=== PATIENT | female | born 1935 | race Caucasian/White ===

== ENCOUNTER 2016-09-27 19:06 | Observation (INO) ==
--- NOTE | 2016-09-27 19:27 | Emergency Department Note ---
Disposition Clinical Impression: Atrial fibrillation with RVR, Chest pain Disposition: Admitted As Inpatient Condition: Good Referrals: NO,PCP [Primary Care Provider] - Forms: ED Satisfaction Letter Time of Disposition: 23:01 Arrhythmia/Palpitations HPI - General Chief Complaint: ED Arrhythmia/Palpitations Stated Complaint: fast heart rate Time Seen by Provider: 09/27/16 19:20 Source: patient Mode of arrival: ambulatory Limitations: no limitations Nursing Notes Reviewed: Yes Vital Signs Reviewed: Yes - History of Present Illness HPI Narrative: 80-year-old white female who presents with dizziness that started sometime today around lunchtime. No chest pain or shortness of breath. [facility] and she was noted to have an elevated heart rate. She denies any history of similar symptoms. Pt Subjective Complaint: rapid heart beat Onset (ago): hour(s) Duration: constant Severity: moderate Context: occurred during rest Associated symptoms: Reports: other (Dizziness) Treatments prior to arrival: other (None) - Related Data Home Medications Medication Instructions Recorded Confirmed Aspirin [Lo-Dose Aspirin EC] 81 mg PO DAILY 09/27/16 09/27/16 Atorvastatin [Lipitor] 20 mg PO HS 09/27/16 09/27/16 BuPROPion [Wellbutrin] 300 mg PO DAILY 09/27/16 09/27/16 Cholecalciferol (Vitamin D3) 1,000 unit PO DAILY 09/27/16 09/27/16 [Vitamin D] Divalproex (24 HR) [Depakote ER 500 mg PO BID 09/27/16 09/27/16 (24 HR)] Docusate [Colace] 100 mg PO DAILY 09/27/16 09/27/16 Dorzolamide/Timolol/Pf [Cosopt Pf 1 each OP 09/27/16 Eye Drops] Folic Acid 1 mg PO DAILY 09/27/16 09/27/16 Gabapentin [Neurontin] 100 mg PO DAILY 09/27/16 09/27/16 Gemfibrozil [Lopid] 600 mg PO BIDWM 09/27/16 09/27/16 HYDROcodone/Acet 5/325 mg [[place] 1 tab PO Q6H PRN 09/27/16 09/27/16 5-325 mg] LORazepam [Ativan] 2.5 mg PO HS PRN 09/27/16 09/27/16 Lisinopril [Zestril] 10 mg PO DAILY 09/27/16 09/27/16 Metformin HCl [Glucophage] 1,000 mg PO BID 09/27/16 09/27/16 Ondansetron HCl [Zofran] 4 mg PO Q6H PRN 09/27/16 09/27/16 Potassium Chloride [Klor-Con 10] 10 meq PO DAILY 09/27/16 09/27/16 Ramelteon [Rozerem] 8 mg PO DAILY PRN 09/27/16 09/27/16 Ranitidine HCl [Acid Cement Worker] 150 mg PO DAILY 09/27/16 09/27/16 SitaGLIPtin [Januvia] 100 mg PO DAILY 09/27/16 09/27/16 Tramadol HCl [Ultram] 50 mg PO Q6H PRN 09/27/16 09/27/16 Allergies Allergy/AdvReac Type Severity Reaction Status Date / Time valdecoxib [From Bextra] Allergy Rash Verified 12/30/14 11:18 All systems ED: reviewed and negative except as stated. Constitutional: Denies: fever, chills Cardiovascular: Reports: palpitations. Denies: chest pain Respiratory: Denies: cough, dyspnea Gastrointestinal: Denies: abdominal pain, nausea, vomiting Genitourinary: Denies: urgency, dysuria Past Medical History - Past Medical History Medical history: Reports: diabetes, GERD, glaucoma, hyperlipidemia, arthritis, hypertension, other, CHF Surgical history: Reports: cataract, cholecystectomy Psychiatric history: Reports: bipolar, depression - Social History Smoking Status: Former smoker Smokeless Tobacco Status: No Alcohol use: Reports: none Drug use: Reports: none Physical Exam - General Limitations: no limitations General appearance: alert, in no apparent distress - Head Head exam: atraumatic, normocephalic - Eye Eye exam: Present: PERRL, EOMI - ENT ENT exam: normal oropharynx, mucous membranes moist - Neck Neck exam: Present: normal inspection, full ROM, trachea midline. Absent: lymphadenopathy - Chest Chest inspection: Present: normal inspection, symmetric chest wall rise - Respiratory Respiratory exam: Present: normal lung sounds bilaterally. Absent: respiratory distress, wheezes - Cardiovascular Cardiovascular exam: Present: regular rate, tachycardia. Absent: systolic murmur, diastolic murmur, gallop - Abdominal Exam Abdominal exam: Present: soft, Non-Tender. Absent: organomegaly, mass - Extremities Exam Extremities exam: Present: normal inspection, normal capillary refill. Absent: pedal edema, calf tenderness - Neurological Exam Neurological exam: Present: alert, oriented X3. Absent: motor sensory deficit - Psychiatric Psychiatric exam: Present: normal affect, normal mood - Skin Skin exam: Present: warm, dry, intact, normal color Course - Reevaluation(s) Reevaluation #1: Patient had some transient chest discomfort that she describes an aching that lasted a few minutes. It resolved by the time I got to the bedside. Her heart rate is 82. Her blood pressure is 90/73. Her exam is unchanged. Time: 21:21 Vital Signs Temperature 97.4 F L 09/27/16 19:08 Pulse Rate 149 09/27/16 19:08 Respiratory Rate 18 09/27/16 19:08 Blood Pressure 136/81 09/27/16 19:08 O2 Sat by Pulse Oximetry 96 09/27/16 19:08 Temperature 97.4 F L 09/27/16 19:08 Pulse Rate 86 09/27/16 22:37 Respiratory Rate 21 09/27/16 22:37 Blood Pressure 146/93 09/27/16 22:37 O2 Sat by Pulse Oximetry 99 09/27/16 22:37 Oxygen Delivery Oxygen Delivery Nasal Cannula Arrhythmia/Palpitations - [facility] Narrative Medical decision making narrative: She has new onset A. fib with RVR. She is converted to a sinus rhythm. She has some transient chest discomfort. I spoke with Dr. Del Rio. We will put her in an observation bed repeat enzymes and monitoring. - Differential Diagnosis Differential Diagnosis: Likely: palpitations, anxiety, sinus tachycardia, artial arrhythmia, ventricular premature beats, supraventricular tachycardia, ventricular tachycardia, metabolic/electrolyte disturbance, undetermined arrhythmia - Lab Data Lab results reviewed: Yes I reviewed the patient's lab results. Result diagrams: 09/27/16 19:37 09/27/16 19:37 Lab Results 09/27/16 09/27/16 09/27/16 Range/Units 19:37 19:37 19:37 WBC 8.4 (4.3-11.1) K/mcL RBC 4.31 (3.82-4.97) M/mcL Hgb 13.8 (11.5-15.4) g/dL Hct 40.0 (35.3-44.9) % MCV 92.8 (83.0-100.0) fL MCH 32.0 (28.0-33.3) pg MCHC 34.5 (31.6-35.5) g/dL RDW 13.1 (11.5-14.5) % Plt Count 276 (140-400) K/mcL MPV 9.7 (9.4-12.4) fL Immature Gran % 0.7 (0-4) % Seg Neutrophils % 55.2 % Lymphocytes % 33.8 % Monocytes % 8.0 % Eosinophils % 1.8 % Basophils % 0.5 % Neutrophils # 4.6 (1.6-8.9) K/mcL Lymphocytes # 2.8 (0.6-4.6) K/mcL Monocytes # 0.7 (0.0-1.3) K/mcL Eosinophils # 0.2 (0.0-0.6) K/mcL Basophils # 0.0 (0.0-0.2) K/mcL PT 12.3 H (9.4-12.1) Seconds INR 1.1 Sodium 144 (136-145) mEq/L Potassium 4.1 (3.5-4.5) mEq/L Chloride 110 H (98-109) mEq/L Carbon Dioxide 20 (19-29) mEq/L BUN 24 H (7-20) mg/dL Creatinine 1.19 H (0.57-1.11) mg/dL Est GFR ( Amer) 53 L (> 60) Est GFR (Non-Af Amer) 44 L (> 60) BUN/Creatinine Ratio 20 (6-26) Glucose 227 H (70-99) mg/dL Calculated Osmolality 309 H (280-300) Calcium 9.4 (8.6-10.8) mg/dL Total Bilirubin 0.2 (0.2-1.2) mg/dL AST 10 (5-34) Units/L ALT 8 (0-55) Units/L Alkaline Phosphatase 94 (38-126) Units/L Troponin I (0-0.03) ng/mL B-Natriuretic Peptide (0-100) pg/mL Serum Total Protein 7.1 (6.0-8.3) g/dL Albumin 3.0 L (3.5-5.0) g/dL Globulin 4.1 H (2.4-3.5) g/dL Albumin/Globulin Ratio 0.7 L (1.1-2.2) 09/27/16 09/27/16 09/27/16 Range/Units 19:37 19:37 21:29 WBC (4.3-11.1) K/mcL RBC (3.82-4.97) M/mcL Hgb (11.5-15.4) g/dL Hct (35.3-44.9) % MCV (83.0-100.0) fL MCH (28.0-33.3) pg MCHC (31.6-35.5) g/dL RDW (11.5-14.5) % Plt Count (140-400) K/mcL MPV (9.4-12.4) fL Immature Gran % (0-4) % Seg Neutrophils % % Lymphocytes % % Monocytes % % Eosinophils % % Basophils % % Neutrophils # (1.6-8.9) K/mcL Lymphocytes # (0.6-4.6) K/mcL Monocytes # (0.0-1.3) K/mcL Eosinophils # (0.0-0.6) K/mcL Basophils # (0.0-0.2) K/mcL PT (9.4-12.1) Seconds INR Sodium (136-145) mEq/L Potassium (3.5-4.5) mEq/L Chloride (98-109) mEq/L Carbon Dioxide (19-29) mEq/L BUN (7-20) mg/dL Creatinine (0.57-1.11) mg/dL Est GFR ( Amer) (> 60) Est GFR (Non-Af Amer) (> 60) BUN/Creatinine Ratio (6-26) Glucose (70-99) mg/dL Calculated Osmolality (280-300) Calcium (8.6-10.8) mg/dL Total Bilirubin (0.2-1.2) mg/dL AST (5-34) Units/L ALT (0-55) Units/L Alkaline Phosphatase (38-126) Units/L Troponin I 0.02 0.00 (0-0.03) ng/mL B-Natriuretic Peptide 851 H (0-100) pg/mL Serum Total Protein (6.0-8.3) g/dL Albumin (3.5-5.0) g/dL Globulin (2.4-3.5) g/dL Albumin/Globulin Ratio (1.1-2.2) - Radiology Data Radiology results reviewed: Yes I reviewed the patient's radiology results. ITS Impressions Chest X-Ray 09/27/16 19:24 IMPRESSION: 1. Mild cardiomegaly without evidence of failure 2. Under aeration of the lung bases D/ / Abram Kee MD / Abram Kee MD Interpreting Provider: Abram Kee MD - EKG Data EKG attestation: Yes I reviewed and interpreted this EKG. EKG results narrative: Tachycardia, rate of 144, atrial flutter versus junctional tachycardia. Right ventricular hypertrophy. Age indeterminate anterior lateral infarct. Rhythm strip shows a tachycardic rhythm with a rate of 144, [place] interval 114 ms, QRS 20 ms with no other ectopy as interpreted by me. This is compared to a tracing from 05/28/15 at which time she was in a sinus rhythm. EKG #2: Sinus rhythm, rate of 87, right bundle branch block, anterolateral infarct of indeterminate age. Rhythm strip shows sinus rhythm with rate of 87, AZ interval 186 ms, QRS of 126 ms with no other ectopy as interpreted by me.
[2016-09-27] MEDS ORDERED: WATER IVC SCH (19:30)
[2016-09-27] MEDS ORDERED: D5 IVC SCH (19:30)
[2016-09-27] MEDS ORDERED: DILTIAZEM IVC SCH (19:30)
[2016-09-27 19:43] LABS: Basophils % 0.5 %; Eosinophils # 0.2 K/mcL (0.0-0.6); Eosinophils % 1.8 %; Hemoglobin 13.8 g/dL (11.5-15.4); Immature Granulocytes % 0.7 % (0-4); Lymphocytes # 2.8 K/mcL (0.6-4.6); Lymphocytes % 33.8 %; Mean Corpuscular HGB Conc 34.5 g/dL (31.6-35.5); Mean Corpuscular Volume 92.8 fL (83.0-100.0); Mean Platelet Volume 9.7 fL (9.4-12.4); Monocytes # 0.7 K/mcL (0.0-1.3); Neutrophils # 4.6 K/mcL (1.6-8.9); Platelet Count 276 K/mcL (140-400); Red Blood Count 4.31 M/mcL (3.82-4.97); Red Cell Distribution Width 13.1 % (11.5-14.5); Segmented Neutrophils % 55.2 %
[2016-09-27 19:48] LABS: INR 1.1; Prothrombin Time 12.3 Seconds (9.4-12.1)
[2016-09-27 20:01] LABS: Albumin/Globulin Ratio 0.7 (1.1-2.2); Bilirubin,Total 0.2 mg/dL (0.2-1.2); Calcium 9.4 mg/dL (8.6-10.8); Globulin 4.1 g/dL (2.4-3.5); Potassium 4.1 mEq/L (3.5-4.5); Total Protein 7.1 g/dL (6.0-8.3)
[2016-09-28] MEDS ORDERED: WATER IVC SCH (00:36)
[2016-09-28] MEDS ORDERED: *HR* LORazepam 1 MG TABLET PO PRN (00:36)
[2016-09-28] MEDS ORDERED: DILTIAZEM IVC SCH (00:36)
[2016-09-28] MEDS ORDERED: *HR* HYDROcodone/Acet 5/325 mg TABLET PO PRN (00:36)
[2016-09-28] MEDS ORDERED: D5 IVC SCH (00:36)
[2016-09-28] MEDS ORDERED: Ondansetron ODT 4 MG TAB.RAPDIS PO PRN (00:36)
[2016-09-28] MEDS ORDERED: traMADol 50 MG TABLET PO PRN (00:36)
[2016-09-28] MEDS ORDERED: Naloxone 0.4 MG/ML INJ IVP PRN (00:36)
[2016-09-28] MEDS: 0.9 % Sodium Chloride 1,000 ML IVC SCH ×2 (01:50→12:37)
[2016-09-28] MEDS: *HR* Enoxaparin 100 MG/ML SYRINGE SQ SCH ×2 (06:47→17:11)
[2016-09-28] MEDS: Divalproex (24 HR) 500 MG TABLET PO SCH ×2 (08:37→21:22)
[2016-09-28] MEDS: Aspirin Enteric Coated 81 MG Tablet PO SCH (08:37)
[2016-09-28] MEDS: Gabapentin 100 MG CAPSULE PO SCH (08:38)
[2016-09-28] MEDS: Folic Acid 1 MG TABLET PO SCH (08:38)
[2016-09-28] MEDS: Famotidine 20 MG TABLET PO SCH (08:38)
[2016-09-28] MEDS: Cholecalciferol (D-3) 1,000 UNIT TABLET PO SCH (08:39)
[2016-09-28] MEDS: *HR* SitaGLIPtin 25 MG TABLET PO SCH (08:39)
[2016-09-28] MEDS: *HR* Metformin 500 MG TABLET PO SCH ×2 (08:40→21:22)
--- NOTE | 2016-09-28 09:26 | Electrocardiograph Report ---
[address] [place], [place] [address] Test Date: 2016-09-27 Pat Name: Mini Crespo Department: [id number] Room: [facility] Gender: F Information Coordinator: [id number] : 1935 Requested By: Skinny Crews Order Number: [id number] Reading MD: Reggie Escalona MD Measurements Intervals [place] Rate: 87 P: 16 UT: 186 QRS: 119 QRSD: 126 T: 22 QT: 401 QTc: 446 Interpretive Statements SINUS RHYTHM RIGHT BUNDLE BRANCH BLOCK Poor R wave progression Electronically Signed On 09-28-2016 9:24:51 EDT by Reggie Escalona MD
--- NOTE | 2016-09-28 11:14 | Internal Med History&Physical ---
Date of Encounter: 09/28/16 Time of Encounter: 10:40 Assessment and Plan (1) SVT (supraventricular tachycardia) Current visit: Yes Status: Acute She was placed on a Cardizem drip in the emergency room. She has converted to normal sinus rhythm. Repeat cardiac enzymes were negative. Will start low- dose Toprol-XL and discontinue Cardizem drip. Anticipate discharge back to assisted tomorrow. (2) CKD (chronic kidney disease) stage 3, GFR 30-59 ml/min Current visit: Yes Status: Chronic Renal indices have fluctuated over the past few months. We will monitor as needed. (3) Hyperuricemia Current visit: Yes Status: Acute Uric acid level was 8.8 on 12/15/2014. We will recheck in a.m. (4) Folate deficiency Current visit: Yes Status: Acute Folate level was 5.06 on 11/20/2013. We will recheck in a.m. (5) Diastolic heart failure Current visit: Yes Status: Chronic BN peptide was 851 in emergency room. Will start low dose Toprol-XL and continue lisinopril. Recheck BNP in a.m. Qualifiers: Heart failure chronicity: chronic Qualified Code(s): I50.32 - Chronic diastolic (congestive) heart failure (6) Type 2 diabetes mellitus Current visit: No Status: Chronic Hemoglobin A1c was 6.2% on 07/07/2016. Continue present regimen from the assisted. Qualifiers: Diabetes mellitus complication status: with kidney complications Diabetes mellitus complication detail: with chronic kidney disease Diabetes mellitus continuous churn buttermaker insulin use: without continuous churn buttermaker use Chronic kidney disease stage: stage 3 (moderate) Qualified Code(s): E11.22 - Type 2 diabetes mellitus with diabetic chronic kidney disease; N18.3 - Chronic kidney disease, stage 3 ( moderate) Internal Medicine - H&P: HPI Chief complaint: Tachycardia Admitted From: Long-term Nursing Facility Plans for Post Hospital Care: Transfer General Farm Manager Care History of present illness: Ms. Crespo is a 80 year old female who was sent from the assisted to emergency room after she was found to have heart rate approximately 140/m. She reportedly complained of dyspnea and palpitations at the assisted at that time. She was evaluated in emergency room and felt to have SVT. She was started on Cardizem drip and admitted to [facility] floor for ongoing care needs. She denies previous similar episodes of tachycardia. She states she is asymptomatic at this time. She has a history of hypertension. She had an echocardiogram 05/29/2015 which showed LVEF of 65% with mild diastolic dysfunction seen. There was no significant valvular abnormalities noted. There was increased thickness of the interventricular septum and posterior todd at 1.3 and 1.2 cm respectively. She denies DVT or pulmonary embolus. She typically ambulates with a walker at the assisted. Past Med Surg Social Fam HX - Past Medical History Medical history: arthritis, atrial fibrillation, CHF, diabetes, GERD, glaucoma, hyperlipidemia, hypertension, other Psychiatric history: bipolar, depression - Past Surgical History Surgical History: cataract, cholecystectomy - Social History Smoking Status: Former smoker Smokeless Tobacco Status: No Alcohol use: none Drug use: none - Family History Father Living Status: Hx Family Cardiac Disorders: Yes (exstensive heart disease) Mother Living Status: Hx Family Neurologic Disorders: Yes (stroke) Internal Medicine - H&P: Meds Aspirin [Lo-Dose Aspirin EC] 81 mg PO DAILY 09/27/16 [History] Atorvastatin [Lipitor] 20 mg PO HS 09/27/16 [History] BuPROPion [Wellbutrin] 300 mg PO DAILY 09/27/16 [History] Cholecalciferol (Vitamin D3) [Vitamin D] 1,000 unit PO DAILY 09/27/16 [History] Divalproex (24 HR) [Depakote ER (24 HR)] 500 mg PO BID 09/27/16 [History] Docusate [Colace] 100 mg PO DAILY 09/27/16 [History] Dorzolamide/Timolol/Pf [Cosopt Pf Eye Drops] 1 each OP 09/27/16 [History] Folic Acid 1 mg PO DAILY 09/27/16 [History] Gabapentin [Neurontin] 100 mg PO DAILY 09/27/16 [History] Gemfibrozil [Lopid] 600 mg PO BIDWM 09/27/16 [History] HYDROcodone/Acet 5/325 mg [[place] 5-325 mg] 1 tab PO Q6H PRN 09/27/16 [History] LORazepam [Ativan] 2.5 mg PO HS PRN 09/27/16 [History] Lisinopril [Zestril] 10 mg PO DAILY 09/27/16 [History] Metformin HCl [Glucophage] 1,000 mg PO BID 09/27/16 [History] Ondansetron HCl [Zofran] 4 mg PO Q6H PRN 09/27/16 [History] Potassium Chloride [Klor-Con 10] 10 meq PO DAILY 09/27/16 [History] Ramelteon [Rozerem] 8 mg PO DAILY PRN 09/27/16 [History] Ranitidine HCl [Acid Nut Threader] 150 mg PO DAILY 09/27/16 [History] SitaGLIPtin [Januvia] 100 mg PO DAILY 09/27/16 [History] Tramadol HCl [Ultram] 50 mg PO Q6H PRN 09/27/16 [History] Allergies valdecoxib [From Bextra] Allergy (Verified 12/30/14 11:18) Rash All Systems PM: A 10-system review of systems was performed and is negative for pertinent findings except as documented above in the HPI. Review of systems: Gen.: Her weight has decreased from 96 kg at the May 2015 [facility] hospitalization to 86.183 kg at present time. Cardiovascular: As per history of present illness Respiratory: She smoked from age [age] never exceeding 1 pack per day. She denies chronic lung disease. She has had pneumonia in the past. GI: She has had cholecystectomy. She denies disorders of her liver or exocrine pancreas : She has had UTIs in the past. She had a diverting urostomy briefly several years ago that was reversed. She denies other kidney or bladder disorders Neurologic: She claims she had a mini stroke in the past with no major neurologic deficit. She does walk with a walker at the assisted. She denies seizures or large distribution strokes Endocrine: She states she was diagnosed with DM 2 approximately 5 years ago. She has hyperlipidemia but denies thyroid disease Hematology/oncology: She denies blood disorders cancers or anemia Psychiatric: She has history of anxiety and depression Musk skeletal: She has DJD but denies gout or other bone joint or muscle disorders. - Constitutional Vitals: Temp Pulse Resp BP Pulse Ox 97.6 F 84 20 145/66 95 09/28/16 06:50 09/28/16 06:50 09/28/16 06:50 09/28/16 06:50 06/08/17 06:50 Exam: Gen.: She is a well-developed overweight female lying in bed who appears in no acute distress. HEENT: Head is atraumatic and normocephalic. Eyes: EOMI. There is no scleral icterus. Mouth: Mucosa is moist. Neck: Supple and nontender. There is no thyromegaly or adenopathy noted. Heart: Regular without murmurs gallops or ectopics. Lungs: No wheezes or crackles heard. Abdomen: Soft and nontender. No masses or guarding are noted. Extremities: There is no cyanosis edema or clubbing noted. Dorsalis pedis and posterior tibial pulses are trace palpable bilaterally. Neurologic: Mental status: She is talkative and a good historian. Cranial nerves: Smile is symmetric. Forehead wrinkles bilaterally. Tongue protrudes midline. EOMI. Motor: There is no pronator drift. Cerebellar: Finger to nose is intact bilaterally. Skin: Warm and dry Internal Med - H&P Results - Labs CBC & Chem 7: 09/27/16 19:37 09/27/16 19:37 Labs: Cardiac Enzymes 09/28/16 Range/Units 06:35 Troponin I 0.01 (0-0.03) ng/mL
[2016-09-28] MEDS: Metoprolol XL (24 HR) Succ 50 MG TAB.ER.24H PO SCH (14:37)
--- NOTE | 2016-09-28 16:17 | Electrocardiograph Report ---
[address] [place], [place] [address] Test Date: 2016-09-27 Pat Name: Mini Crespo Department: [id number] Room: [facility] Gender: F Benefits Counselor: : 1935 Requested By: Skinny Crews Order Number: [id number] Reading MD: Pura Robbins Measurements Intervals [place] Rate: 144 P: 245 PA: 114 QRS: 119 QRSD: 120 T: 27 QT: 330 QTc: 413 Interpretive Statements TACHYCARDIA, POSSIBLE ATRIAL FLUTTER RIGHT BUNDLE BRANCH BLOCK ANTEROLATERAL MYOCARDIAL INFARCTION, OF INDETERMINATE AGE Electronically Signed On 09-28-2016 16:15:49 EDT by Pura Robbins
[2016-09-29] MEDS: *HR* Enoxaparin 100 MG/ML SYRINGE SQ SCH (05:11)
[2016-09-29 06:14] LABS: Basophils # 0.1 K/mcL (0.0-0.2); Basophils % 0.8 %; Eosinophils # 0.2 K/mcL (0.0-0.6); Eosinophils % 2.5 %; Hematocrit 40.7 % (35.3-44.9); Hemoglobin 13.7 g/dL (11.5-15.4); Immature Granulocytes % 0.9 % (0-4); Lymphocytes # 4.1 K/mcL (0.6-4.6); Lymphocytes % 46.4 %; Mean Corpuscular HGB Conc 33.7 g/dL (31.6-35.5); Mean Corpuscular Hemoglobin 31.7 pg (28.0-33.3); Mean Corpuscular Volume 94.2 fL (83.0-100.0); Mean Platelet Volume 9.8 fL (9.4-12.4); Monocytes # 0.7 K/mcL (0.0-1.3); Monocytes % 7.7 %; Neutrophils # 3.7 K/mcL (1.6-8.9); Platelet Count 302 K/mcL (140-400); Red Blood Count 4.32 M/mcL (3.82-4.97); Red Cell Distribution Width 12.9 % (11.5-14.5); Segmented Neutrophils % 41.7 %
[2016-09-29 06:28] VITALS: BP 144/67
[2016-09-29 06:33] LABS: Calcium 9.6 mg/dL (8.6-10.8); Potassium 4.2 mEq/L (3.5-4.5)
[2016-09-29] MEDS: Metoprolol XL (24 HR) Succ 50 MG TAB.ER.24H PO SCH (08:06)
[2016-09-29] MEDS: Divalproex (24 HR) 500 MG TABLET PO SCH (08:06)
[2016-09-29] MEDS: Gabapentin 100 MG CAPSULE PO SCH (08:06)
[2016-09-29] MEDS: Famotidine 20 MG TABLET PO SCH (08:06)
[2016-09-29] MEDS: *HR* Metformin 500 MG TABLET PO SCH (08:06)
[2016-09-29] MEDS: *HR* SitaGLIPtin 25 MG TABLET PO SCH (08:06)
[2016-09-29] MEDS: Folic Acid 1 MG TABLET PO SCH (08:07)
[2016-09-29] MEDS: Cholecalciferol (D-3) 1,000 UNIT TABLET PO SCH (08:07)
[2016-09-29] MEDS: Aspirin Enteric Coated 81 MG Tablet PO SCH (08:07)
--- NOTE | 2016-09-29 08:29 | Discharge Summary ---
Date of Encounter: 09/29/16 Time of Encounter: 08:26 - Discharge Diagnosis (1) SVT (supraventricular tachycardia) Priority: Primary Status: Resolved Comments: Pt with remains free of SVT since time in ER. She has remained in NSR throughout her time on the med-surg unit. Her vitals are stable and she is at baseline. We will continue beta-mark initiated this hospital stay. Lab eval benign. Vagal maneuvers as discussed. (2) Diastolic heart failure Priority: Secondary Status: Chronic Comments: Euvolemic with minimal symptoms. No evidence of exacerbation. BNP has improved to below 200. Will continue home regimen. Qualifiers: Heart failure chronicity: chronic Qualified Code(s): I50.32 - Chronic diastolic (congestive) heart failure (3) Type 2 diabetes mellitus Priority: Secondary Status: Chronic Comments: Well-controlled. Will continue home regimen. Qualifiers: Diabetes mellitus complication status: with kidney complications Diabetes mellitus complication detail: with chronic kidney disease Diabetes mellitus predatory animal exterminator insulin use: without detention use Chronic kidney disease stage: stage 3 (moderate) Qualified Code(s): E11.22 - Type 2 diabetes mellitus with diabetic chronic kidney disease; N18.3 - Chronic kidney disease, stage 3 ( moderate) - Discharge Medications Prescriptions: Metoprolol XL (24 HR) Succ [Toprol Xl] 50 mg PO DAILY #30 tab.er.24h Home Medications: Aspirin [Lo-Dose Aspirin EC] 81 mg PO DAILY 09/27/16 [History] Atorvastatin [Lipitor] 20 mg PO HS 09/27/16 [History] BuPROPion [Wellbutrin] 300 mg PO DAILY 09/27/16 [History] Cholecalciferol (Vitamin D3) [Vitamin D3] 1,000 unit PO DAILY 09/27/16 [History] Divalproex (24 HR) [Depakote ER (24 HR)] 500 mg PO BID 09/27/16 [History] Docusate [Colace] 100 mg PO DAILY 09/27/16 [History] Dorzolamide/Timolol/Pf [Cosopt Pf Eye Drops] 1 each OP 09/27/16 [History] Folic Acid 1 mg PO DAILY 09/27/16 [History] Gabapentin [Neurontin] 100 mg PO DAILY 09/27/16 [History] Gemfibrozil [Lopid] 600 mg PO BIDWM 09/27/16 [History] HYDROcodone/Acet 5/325 mg [[place] 5-325 mg] 1 tab PO Q6H PRN 09/27/16 [History] LORazepam [Ativan] 2.5 mg PO HS PRN 09/27/16 [History] Lisinopril [Zestril] 10 mg PO DAILY 09/27/16 [History] Metformin HCl [Glucophage] 1,000 mg PO BID 09/27/16 [History] Ondansetron HCl [Zofran] 4 mg PO Q6H PRN 09/27/16 [History] Potassium Chloride [Klor-Con 10] 10 meq PO DAILY 09/27/16 [History] Ramelteon [Rozerem] 8 mg PO DAILY PRN 09/27/16 [History] Ranitidine HCl [Acid Call Or Contact Centre Team Leader] 150 mg PO DAILY 09/27/16 [History] SitaGLIPtin [Januvia] 100 mg PO DAILY 09/27/16 [History] Tramadol HCl [Ultram] 50 mg PO Q6H PRN 09/27/16 [History] Metoprolol XL (24 HR) Succ [Toprol Xl] 50 mg PO DAILY #30 tab.er.24h 09/29/16 [ Rx] Allergies/Adverse Reactions: Allergies valdecoxib [From Bextra] Allergy (Verified 12/30/14 11:18) Rash Procedures/tests Complete & Pending: ITS Impressions Chest X-Ray 09/27/16 19:24 IMPRESSION: 1. Mild cardiomegaly without evidence of failure. 2. Under aeration of the lung bases. D/ / 09/27/2016 20:10:15 Abram Kee MD / [email or web address] Interpreting Provider: Abram Kee MD Date of admission: 09/27/16 23:07 Primary care physician: PCP NO Consults: None Discharging clinician: Simon Guo Anticipated date of discharge: 09/29/16 - Patient Status Disposition: Transfer SNF Condition: Good Functional capacity at discharge: uses cane/walker Overall status at discharge: patient is back to baseline - Discharge Instructions Instructions: Atrial Fibrillation (DC) Follow Up With: NO,PCP [Primary Care Provider] - 1 week - Diet and Activity Activity: ambulate only with your walker Diet: advance to your usual diet Interval History: Pt has been asymptomatic overnight. There has been no further SVT. She feels well and notes that she is at baseline. She is ambulating with walking and tolerating diabetic diet. She is agreeable for discharge back to [facility] Hospital course: Ms. Crespo is a 80 year old female admitted from her ECF with palpitations and mild dyspnea associated with a regular tachycardia in 140s. Pt was found to be in SVT in ER. She was placed on a diltiazem drip and spontaneously converted to a normal sinus rhythm. Pt was transitioned to an oral beta-mark and remained in NSR throughout the remainder of her hospital stay. Lab eval unremarkable. Vagal maneuvers as discussed. Pt will be discharged back to ECF on new beta- mark regimen. No other changes will be made. - Time Spent with Patient Total time spent providing and/or coordinating discharge services: Less than 30 minutes - Constitutional Vitals: Temp Pulse Resp BP Pulse Ox 97.8 F 73 18 144/67 97 09/29/16 06:26 09/29/16 06:26 09/29/16 06:26 09/29/16 06:26 09/29/16 06:26 Exam: Gen: Sitting in chair, NAD HEENT: NC, AT Neck: Trachea midline, no mass Pulm: No respiratory distress, CTAB CV: Normal S1 and S2, RRR Abdomen: Soft, ND, NT Ext: No C/C/E Neuro: No appreciable motor/sensor deficits Skin: Warm and dry, no rash Psych: A&Ox3
--- NOTE | 2016-09-29 08:49 | Physician Discharge Referral ---
ExtendedCare Referral Info Transfer To: [facility] Provider in Charge: Cherri Provider in Charge after Transfer: PCP Institutional Level of Care: Intermediate - MR - Diagnosis (1) SVT (supraventricular tachycardia) Status: Resolved (2) Diastolic heart failure Status: Chronic (3) Type 2 diabetes mellitus Status: Chronic - Transfer Medications Prescriptions: Metoprolol XL (24 HR) Succ [Toprol Xl] 50 mg PO DAILY #30 tab.er.24h Home Medications: Aspirin [Lo-Dose Aspirin EC] 81 mg PO DAILY 09/27/16 [History] Atorvastatin [Lipitor] 20 mg PO HS 09/27/16 [History] BuPROPion [Wellbutrin] 300 mg PO DAILY 09/27/16 [History] Cholecalciferol (Vitamin D3) [Vitamin D3] 1,000 unit PO DAILY 09/27/16 [History] Divalproex (24 HR) [Depakote ER (24 HR)] 500 mg PO BID 09/27/16 [History] Docusate [Colace] 100 mg PO DAILY 09/27/16 [History] Dorzolamide/Timolol/Pf [Cosopt Pf Eye Drops] 1 each OP 09/27/16 [History] Folic Acid 1 mg PO DAILY 09/27/16 [History] Gabapentin [Neurontin] 100 mg PO DAILY 09/27/16 [History] Gemfibrozil [Lopid] 600 mg PO BIDWM 09/27/16 [History] HYDROcodone/Acet 5/325 mg [[place] 5-325 mg] 1 tab PO Q6H PRN 09/27/16 [History] LORazepam [Ativan] 2.5 mg PO HS PRN 09/27/16 [History] Lisinopril [Zestril] 10 mg PO DAILY 09/27/16 [History] Metformin HCl [Glucophage] 1,000 mg PO BID 09/27/16 [History] Ondansetron HCl [Zofran] 4 mg PO Q6H PRN 09/27/16 [History] Potassium Chloride [Klor-Con 10] 10 meq PO DAILY 09/27/16 [History] Ramelteon [Rozerem] 8 mg PO DAILY PRN 09/27/16 [History] Ranitidine HCl [Acid Medical Orderly] 150 mg PO DAILY 09/27/16 [History] SitaGLIPtin [Januvia] 100 mg PO DAILY 09/27/16 [History] Tramadol HCl [Ultram] 50 mg PO Q6H PRN 09/27/16 [History] Metoprolol XL (24 HR) Succ [Toprol Xl] 50 mg PO DAILY #30 tab.er.24h 09/29/16 [ Rx] Allergies/Adverse Reactions: Allergies valdecoxib [From Bextra] Allergy (Verified 12/30/14 11:18) Rash - Respiratory Orders Smoking Cessation: Smoking cessation has been advised. For more information, call the [place] Tobacco Quit Line at 2-083-QEIP-NOW. - Advance Directives Code Status: Full Code - Mobility Orders Ambulate - Rehabiliation Orders Rehab Potential: Fair - Diet Orders No Concentrated Sweets CERTIFICATION: I certify that the transfer of the above named patient to an Extended Care Facility is necessary for the continuing treatment of the diagnosis listed. The above information is true and accurate reflection of patient's current condition. Confidential - Redisclosure prohibited without a patient's written consent.
== END 2016-09-29 09:20 ==
LOC: EMEROOPIK 19:06 → INPPIK 19:06
PROVIDERS: ADMIT Internal Medicine; ATTEND Internal Medicine

== ENCOUNTER 2018-03-12 12:09 | Observation (INO) ==
[2018-03-12] MEDS ORDERED: Ketorolac 30 MG/ML VIAL IVP ONE (12:57)
--- NOTE | 2018-03-12 13:00 | Emergency Department Note ---
Disposition Clinical Impression: Urinary tract infection Qualifiers: Urinary tract infection type: site unspecified Hematuria presence: with hematuria Qualified Code(s): N39.0 - Urinary tract infection, site not specified; R31.9 - Hematuria, unspecified Disposition: Admitted As Inpatient Condition: Fair Time of Disposition: 13:55 Back Pain HPI - General Chief Complaint: ED Back Pain/Injury Stated Complaint: Head, neck, & back pain for five days Time Seen by Provider: 03/12/18 12:47 Source: patient, family, EMS Mode of arrival: EMS Limitations: age Nursing Notes Reviewed: Yes Vital Signs Reviewed: Yes - History of Present Illness Pt Subjective Complaint: other (Neck and upper back pain.) Onset (ago): day(s) (Several days) Duration: constant Similar Symptoms Previously: No Location: Other (Neck and upper back and shoulders) Pain Severity: moderate Quality: sharp Radiation: none Worsens with: other (Range of motion of neck) Context: other (Patient says she slept on a pillow that was larger than usual and she is been having that neck and upper back discomfort since then.) Associated symptoms: Reports: other (Patient says she otherwise feels pretty go od. However the patient's daughter is here and she is complaining the patient is confused and she does not know vascular the patient's 82 was starting to get demented or maybe she has an infection like a urine infection. Daughter reports the patient is having decreased appetite and has had some diarrhea.) - Related Data Home Medications Medication Instructions Recorded Confirmed RX: Aspirin [Lo-Dose Aspirin EC] 81 mg PO DAILY 09/27/16 03/12/18 RX: Atorvastatin [Lipitor] 20 mg PO HS 09/27/16 03/12/18 RX: BuPROPion [Wellbutrin] 150 mg PO DAILY 09/27/16 03/12/18 RX: Docusate [Colace] 100 mg PO DAILY 09/27/16 03/12/18 RX: Gabapentin [Neurontin] 100 mg PO HS 09/27/16 03/12/18 RX: Lisinopril [Zestril] 10 mg PO HS 09/27/16 03/12/18 RX: Dicyclomine [Bentyl] 10 mg PO ACHS 04/10/17 03/12/18 RX: Divalproex Sodium [Depakote] 250 mg PO QAM 04/10/17 03/12/18 RX: Glimepiride [Amaryl] 1 mg PO DAILY 04/10/17 03/12/18 RX: Loratadine [Claritin] 10 mg PO QAM 04/10/17 03/12/18 RX: Melatonin 5 mg PO HS 04/10/17 03/12/18 RX: Metoprolol XL (24 HR) Succ 50 mg PO HS 04/10/17 03/12/18 [Toprol Xl] RX: Travoprost [Travatan Z] 51 drop BOTH EYES HS 04/10/17 03/12/18 RX: Allopurinol [Zyloprim 100 MG] 100 mg PO DAILY 11/04/17 03/12/18 RX: Benzonatate [Tessalon] 100 mg PO TID 11/05/17 03/12/18 RX: Cholecalciferol (D-3) [Vitamin 1,000 unit PO DAILY 11/05/17 03/12/18 D] RX: Cholestyramine 4 gm PO DAILY PRN 11/05/17 03/12/18 RX: Cranberry Fruit Extract 250 mg PO BID 11/05/17 03/12/18 [Cranberry] RX: Divalproex (24 HR) [Depakote 500 mg PO HS 11/05/17 03/12/18 ER (24 HR)] RX: Dorzolamide/Timolol [Cosopt] 1 drop BOTH EYES BID 11/05/17 03/12/18 RX: Ferrous Sulfate [Iron] 325 mg PO DAILY 11/05/17 03/12/18 RX: GuaiFENesin/Dextromethorphan 10 ml PO Q6HR PRN 11/05/17 03/12/18 [Robitussin/Dm] RX: Guaifenesin [Mucinex] 600 mg PO BID PRN 11/05/17 03/12/18 RX: Ipratropium/Albuterol Neb 3 ml IH Q4HR PRN 11/05/17 03/12/18 [Duoneb] RX: Linagliptin [Tradjenta] 5 mg PO DAILY 11/05/17 03/12/18 RX: Loperamide HCl [Anti-Diarrheal] 2 mg PO QID PRN MDD 8 TAB PER DAY 11/05/17 03/12/18 RX: Mirabegron [Myrbetriq] 25 mg PO DAILY 11/05/17 03/12/18 RX: Mirtazapine [Remeron] 15 mg PO HS 11/05/17 03/12/18 RX: Ondansetron HCl [Zofran] 4 mg PO Q6H PRN 11/05/17 03/12/18 RX: Oxybutynin Chloride [Ditropan 20 mg PO DAILY 11/05/17 03/12/18 Xl] RX: Pantoprazole Sodium 40 mg PO DAILY 11/05/17 03/12/18 RX: Phenol/Glycerin [Chloraseptic 2 spr MM DAILY PRN 11/05/17 03/12/18 Max [place]] Previous Rx's Medication Instructions Recorded RX: HYDROcodone/Acet 5/325 mg 1 tab PO Q8H PRN 3 Days #9 tablet 11/12/17 [[place] 5-325 mg] RX: LORazepam [Lorazepam] 2 mg PO DAILY 3 Days #3 tablet 11/12/17 RX: Zolpidem [Ambien] 10 mg PO HS 3 Days #3 tablet 11/12/17 Allergies Allergy/AdvReac Type Severity Reaction Status Date / Time valdecoxib [From Bextra] Allergy Rash Verified 12/30/14 11:18 All systems ED: reviewed and negative except as stated. Constitutional: Denies: fever, chills ENT ED: Denies: ear pain, throat pain, congestion Cardiovascular: Denies: chest pain, palpitations Respiratory: Denies: cough, dyspnea Gastrointestinal: Reports: diarrhea. Denies: abdominal pain Musculoskeletal: Reports: neck pain, arthralgia Integumentary: Denies: rash Neurological: Denies: headache Past Medical History - Past Medical History Attestation: Yes The following information was validated with the patient. Source: patient, old records reviewed, obtained from family, nursing notes reviewed Medical history: Reports: arthritis, atrial fibrillation, CHF, diabetes, GERD, glaucoma, hyperlipidemia, hypertension Surgical history: Reports: cataract, cholecystectomy Psychiatric history: Reports: bipolar, depression - Social History Smoking Status: Former smoker Smokeless Tobacco Status: No Alcohol use: Reports: none Drug use: Reports: none Physical Exam - General Limitations: age General appearance: alert, in no apparent distress - Head Head exam: atraumatic, normocephalic, normal inspection - Eye Eye exam: Present: normal appearance, PERRL, EOMI. Absent: scleral icterus, conjunctival injection - ENT ENT exam: normal exam, normal oropharynx, mucous membranes moist, normal external ear exam - Neck Neck exam: Present: tenderness (Tender to all over the back of the neck and to the top of the trapezius muscles bilaterally as they come down off the neck onto the shoulders.) - Chest Chest inspection: Present: normal inspection, symmetric chest wall rise. Absent: tenderness - Respiratory Respiratory exam: Present: normal lung sounds bilaterally. Absent: respiratory distress, wheezes - Cardiovascular Cardiovascular exam: Present: regular rate, normal rhythm, normal heart sounds - Abdominal Exam Abdominal exam: Present: soft, Non-Tender, normal bowel sounds - Extremities Exam Extremities exam: Present: normal inspection. Absent: tenderness, pedal edema - Back Exam Back exam: Absent: vertebral tenderness - Neurological Exam Neurological exam: Present: alert, oriented X3. Absent: motor sensory deficit - Psychiatric Psychiatric exam: Present: normal affect, normal mood - Skin Skin exam: Present: warm, dry. Absent: rash Course Course Narrative: Patient presents with a complaint of neck discomfort that she says came on a couple days ago after sleeping funny on a pillow. My examination seems consistent with a lot of muscular discomfort for which I am going to give her some Toradol. Family members however wanted deeper evaluation because they are concerned that she is having some confusion. Now this certainly could be dementia and an 82-year-old female lives in a intermediate but she has had UTIs in the past and has presented with confusion then as well. I however am not finding any indications of confusion at this time but will go ahead and do a workup on the patient to make sure were not missing anything. Disposition will be based on diagnostic results and reevaluation. - Reevaluation(s) Reevaluation #1: Patient's urinalysis was positive for urinary tract infection and her white count was elevated. We went ahead and admitted her to the hospital for urinary tract infection. We started Rocephin here in the department. Time: 17:08 - Consultations Consultation #1: Dr. Del Rio, hospitalist - I discussed the case with the hospitalist. He accepted the patient for admission to the hospital. Vital Signs Temperature 97.5 F L 03/12/18 12:14 Pulse Rate 82 03/12/18 12:14 Respiratory Rate 18 11/20/18 12:14 Blood Pressure 113/56 03/12/18 12:14 O2 Sat by Pulse Oximetry 94 03/12/18 12:14 Temperature 97.5 F L 03/12/18 12:14 Pulse Rate 83 03/12/18 16:04 Respiratory Rate 16 03/12/18 16:04 Blood Pressure 133/73 03/12/18 16:04 O2 Sat by Pulse Oximetry 95 03/12/18 16:04 Oxygen Delivery Oxygen Delivery Room Air Back Pain/Injury - Medical Records Medical records reviewed: Yes I reviewed the patient's medical records. - Lab Data Lab results reviewed: Yes I reviewed the patient's lab results. Result diagrams: 03/12/18 13:10 03/12/18 13:10 Lab Results 03/12/18 03/12/18 03/12/18 Range/Units 13:10 13:10 13:36 WBC 16.7 H (4.3-11.1) K/mcL RBC 4.04 (3.82-4.97) M/mcL Hgb 12.3 (11.5-15.4) g/dL Hct 37.8 (35.3-44.9) % MCV 93.6 (83.0-100.0) fL MCH 30.4 (28.0-33.3) pg MCHC 32.5 (31.6-35.5) g/dL RDW 14.3 (11.5-14.5) % Plt Count 231 (140-400) K/mcL MPV 8.4 L (9.4-12.4) fL Immature Gran % 3.2 (0-4) % Seg Neutrophils % 71.5 % Lymphocytes % 14.6 % Monocytes % 9.5 % Eosinophils % 0.5 % Basophils % 0.7 % Neutrophils # 11.9 H (1.6-8.9) K/mcL Lymphocytes # 2.4 (0.6-4.6) K/mcL Monocytes # 1.6 H (0.0-1.3) K/mcL Eosinophils # 0.1 (0.0-0.6) K/mcL Basophils # 0.1 (0.0-0.2) K/mcL Sodium 140 (136-145) mEq/L Potassium 3.7 (3.5-5.1) mEq/L Chloride 105 (98-107) mEq/L Carbon Dioxide 28 (23-29) mEq/L BUN 32 H (8-23) mg/dL Creatinine 1.64 H (0.60-1.20) mg/dL Est GFR ( Amer) 36 L (> 60) Est GFR (Non-Af Amer) 30 L (> 60) BUN/Creatinine Ratio 20 (6-26) Glucose 114 H (70-105) mg/dL Calculated Osmolality 298 (280-300) Calcium 8.6 (8.6-10.3) mg/dL Troponin I < 0.03 (< 0.04) ng/mL Urine Color Yellow (Yellow) Urine Clarity Turbid A (Clear) Urine pH 5.5 (5.0-8.0) pH Units Ur Specific [place] >= 1.030 H (1.010-1.025) Urine Protein 100 H (Neg-Trace) mg/dL Urine Glucose (UA) Normal (Normal) mg/dL Urine Ketones Negative (Negative) mg/dL Urine Blood Moderate H (Negative) Urine Nitrite Negative (Negative) Urine Bilirubin Negative (Negative) Urine Urobilinogen Normal (Normal) mg/dL Ur Leukocyte Esterase Large H (Negative) Urine Microscopic RBC TNTC H (0-3) per hpf Urine Microscopic WBC TNTC H (0-3) per hpf Ur Squamous Epith Cells Few (None-Few) per lpf Urine Bacteria Many H (None-Few) per hpf Urine Mucus Few (Few) Ur Culture Indicated? YES A (NO) - Radiology Data Radiology results reviewed: Yes I reviewed the patient's radiology results.
[2018-03-12 13:23] LABS: Basophils # 0.1 K/mcL (0.0-0.2); Basophils % 0.7 %; Eosinophils # 0.1 K/mcL (0.0-0.6); Eosinophils % 0.5 %; Hematocrit 37.8 % (35.3-44.9); Hemoglobin 12.3 g/dL (11.5-15.4); Immature Granulocytes % 3.2 % (0-4); Lymphocytes # 2.4 K/mcL (0.6-4.6); Lymphocytes % 14.6 %; Mean Corpuscular HGB Conc 32.5 g/dL (31.6-35.5); Mean Corpuscular Hemoglobin 30.4 pg (28.0-33.3); Mean Corpuscular Volume 93.6 fL (83.0-100.0); Mean Platelet Volume 8.4 fL (9.4-12.4); Monocytes # 1.6 K/mcL (0.0-1.3); Monocytes % 9.5 %; Platelet Count 231 K/mcL (140-400); Red Blood Count 4.04 M/mcL (3.82-4.97); Red Cell Distribution Width 14.3 % (11.5-14.5); Segmented Neutrophils % 71.5 %
[2018-03-12 13:24] LABS: Neutrophils # 11.9 K/mcL (1.6-8.9)
[2018-03-12 13:42] LABS: BUN/Creatinine Ratio 20 (6-26); Blood Urea Nitrogen 32 mg/dL (8-23); Calcium 8.6 mg/dL (8.6-10.3); Carbon Dioxide 28 mEq/L (23-29); Chloride 105 mEq/L (98-107); Glucose 114 mg/dL (70-105); Osmolality,Calculated 298 (280-300); Potassium 3.7 mEq/L (3.5-5.1); Sodium 140 mEq/L (136-145); eGFR For Non-African Americans 30 (> 60)
[2018-03-12 13:43] LABS: Troponin I < 0.03 ng/mL (< 0.04)
[2018-03-12] MEDS ORDERED: 0.9 % Sodium Chloride 1,000 ML IVC ONE (13:50)
[2018-03-12 13:51] LABS: Bilirubin,Urine Negative (Negative); Blood,Urine Moderate (Negative); Clarity,Urine Turbid (Clear); Color,Urine Yellow (Yellow); Glucose,Urine (UA) Normal (Normal); Ketones,Urine Negative (Negative); Leukocyte Esterase,Urine Large (Negative); Nitrite,Urine Negative (Negative); PH,Urine 5.5 pH Units (5.0-8.0); Protein,Urine 100 mg/dL (Neg-Trace); Specific Gravity,Urine >= 1.030 (1.010-1.025); Urobilinogen,Urine Normal (Normal)
[2018-03-12 14:01] LABS: Bacteria,Urine Many per hpf (None-Few); Mucus,Urine Few (Few); RBC,Urine TNTC per hpf (0-3); Squamous Epithelial Cell,Urine Few per lpf (None-Few); WBC,Urine TNTC per hpf (0-3)
[2018-03-12] MEDS ORDERED: Ondansetron ODT 4 MG TAB.RAPDIS SL PRN (18:30)
[2018-03-12] MEDS ORDERED: Naloxone 0.4 MG/ML INJ IVP PRN (18:30)
[2018-03-12] MEDS ORDERED: Cholestyramine 4 GM POWD.PACK PO PRN (18:30)
[2018-03-12] MEDS ORDERED: *HR* HYDROcodone/Acet 5/325 mg TABLET PO PRN (18:30)
[2018-03-12] MEDS ORDERED: Ipratropium/Albuterol Neb 3 ML IH PRN (18:30)
[2018-03-12] MEDS ORDERED: 0.9 % Sodium Chloride 1,000 ML IVC SCH (18:30)
--- NOTE | 2018-03-12 20:10 | Internal Med History&Physical ---
Date of Encounter: 03/12/18 Time of Encounter: 19:35 Assessment and Plan (1) Urinary tract infection Current visit: Yes Status: Acute She was started on Rocephin in emergency room. This will be continued with lactobacillus. Qualifiers: Urinary tract infection type: site unspecified Hematuria presence: with hematuria Qualified Code(s): N39.0 - Urinary tract infection, site not specified; R31.9 - Hematuria, unspecified (2) CKD (chronic kidney disease) stage 3, GFR 30-59 ml/min Current visit: No Status: Chronic Appears to have acute on chronic renal insufficiency. IV fluids will be given and lisinopril will be held. (3) Diastolic heart failure Current visit: No Status: Chronic Asymptomatic at present. Check BNP peptide in a.m. Qualifiers: Heart failure chronicity: chronic Qualified Code(s): I50.32 - Chronic diastolic (congestive) heart failure (4) Type 2 diabetes mellitus Current visit: No Status: Chronic Hemoglobin A1c was 6.0% on 02/06/2018. Continue Amaryl and Tradjenta. 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 Crespo is a 82 year old female who came to emergency room stating she had pain in her neck for past few days. She attributed the pain to sleeping on a different pillow at the [facility] where [facility]. She was evaluated in emergency room and was found to have leukocytosis with probable UTI. She had acute on chronic renal insufficiency. She was admitted to [facility] floor for ongoing care needs. She states she has had urinary tract infections in the past. She had a diverting urostomy briefly several years ago that was reversed. She denies other kidney or bladder disorders. Past Med Surg Social Fam HX - Past Medical History Medical history: arthritis, atrial fibrillation, CHF, diabetes, GERD, glaucoma, hyperlipidemia, hypertension Additional medical history: anemia Psychiatric history: bipolar, depression - Past Surgical History Surgical History: cataract, cholecystectomy Additional surgical history: bladder tuck - colonoscopy - Social History Smoking Status: Former smoker Smokeless Tobacco Status: No Alcohol use: none Drug use: none - Family History Father Living Status: Hx Family Cardiac Disorders: Yes (exstensive heart disease) Mother Living Status: Hx Family Neurologic Disorders: Yes (stroke) Internal Medicine - H&P: Meds Aspirin [Lo-Dose Aspirin EC] 81 mg PO DAILY 09/27/16 [History] Atorvastatin [Lipitor] 20 mg PO HS 09/27/16 [History] BuPROPion [Wellbutrin] 150 mg PO DAILY 09/27/16 [History] Docusate [Colace] 100 mg PO DAILY 09/27/16 [History] Gabapentin [Neurontin] 100 mg PO HS 09/27/16 [History] Lisinopril [Zestril] 10 mg PO HS 09/27/16 [History] Dicyclomine [Bentyl] 10 mg PO ACHS 04/10/17 [History] Divalproex Sodium [Depakote] 250 mg PO QAM 04/10/17 [History] Glimepiride [Amaryl] 1 mg PO DAILY 04/10/17 [History] Loratadine [Claritin] 10 mg PO QAM 04/10/17 [History] Melatonin 5 mg PO HS 04/10/17 [History] Metoprolol XL (24 HR) Succ [Toprol Xl] 50 mg PO HS 04/10/17 [History] Travoprost [Travatan Z] 51 drop BOTH EYES HS 04/10/17 [History] Allopurinol [Zyloprim 100 MG] 100 mg PO DAILY 11/04/17 [History] Benzonatate [Tessalon] 100 mg PO TID 11/05/17 [History] Cholecalciferol (D-3) [Vitamin D] 1,000 unit PO DAILY 11/05/17 [History] Cholestyramine 4 gm PO DAILY PRN 11/05/17 [History] Cranberry Fruit Extract [Cranberry] 250 mg PO BID 11/05/17 [History] Divalproex (24 HR) [Depakote ER (24 HR)] 500 mg PO HS 11/05/17 [History] Dorzolamide/Timolol [Cosopt] 1 drop BOTH EYES BID 11/05/17 [History] Ferrous Sulfate [Iron] 325 mg PO DAILY 11/05/17 [History] GuaiFENesin/Dextromethorphan [Robitussin/Dm] 10 ml PO Q6HR PRN 11/05/17 [History] Guaifenesin [Mucinex] 600 mg PO BID PRN 11/05/17 [History] Ipratropium/Albuterol Neb [Duoneb] 3 ml IH Q4HR PRN 11/05/17 [History] Linagliptin [Tradjenta] 5 mg PO DAILY 11/05/17 [History] Loperamide HCl [Anti-Diarrheal] 2 mg PO QID PRN MDD 8 TAB PER DAY 11/05/17 [History] Mirabegron [Myrbetriq] 25 mg PO DAILY 11/05/17 [History] Mirtazapine [Remeron] 15 mg PO HS 11/05/17 [History] Ondansetron HCl [Zofran] 4 mg PO Q6H PRN 11/05/17 [History] Oxybutynin Chloride [Ditropan Xl] 20 mg PO DAILY 11/05/17 [History] Pantoprazole Sodium 40 mg PO DAILY 11/05/17 [History] Phenol/Glycerin [Chloraseptic Max [place]] 2 spr MM DAILY PRN 11/05/17 [History] HYDROcodone/Acet 5/325 mg [[place] 5-325 mg] 1 tab PO Q8H PRN 3 Days #9 tablet 11/12/17 [Rx] LORazepam [Lorazepam] 2 mg PO DAILY 3 Days #3 tablet 11/12/17 [Rx] Zolpidem [Ambien] 10 mg PO HS 3 Days #3 tablet 11/12/17 [Rx] Allergy/AdvReac Type Severity Reaction Status Date / Time valdecoxib [From Bextra] Allergy Rash Verified 12/30/14 11:18 All Systems PM: A 10-system review of systems was performed and is negative for pertinent fin dings except as documented above in the HPI. Review of systems: Review of systems from her September 2016 [facility] hospitalization were reviewed and revised as below. Gen.: Her weight has decreased from 96 kg at the May 2015 [facility] hospitalization to 85.729 kg at present time. Cardiovascular: She has history of hypertension. She denies DVT or pulmonary embolus. She had an echocardiogram 11/05/2017 which showed grossly normal LV systolic function with impaired visualization of some LV wall segments. There was reported indeterminate diastolic function although E/A ratio was 0.6. A previous echocardiogram 05/29/2015 showed LVEF of 65% with mild diastolic dysfunction. There was no significant valvular abnormalities noted. There was increased thickness of the interventricular septum and posterior todd at 1.3 and 1.2 cm respectively. She was hospitalized September 2016 at [facility] with SVT. She was prescribed metoprolol XL at discharge and denies recurrence. Available rec ords also reported history of V. tach. Respiratory: She smoked from age [age] never exceeding 1 pack per day. She denies chronic lung disease. She has had pneumonia in the past. GI: She has had cholecystectomy. She denies disorders of her liver or exocrine pancreas : As per history of present illness Neurologic: She claims she had a mini stroke in the past with no major neurologic deficit. She uses a walker at the long term. She denies seizures or large distribution strokes Endocrine: She states she was diagnosed with DM 2 approximately 2011. She has hyperlipidemia but denies thyroid disease Hematology/oncology: She denies blood disorders cancers or anemia Psychiatric: She has history of anxiety and depression Musk skeletal: She has DJD but denies other bone joint or muscle disorders. I note she is on allopurinol at the [facility]. Most recent uric acid level was 6.6 on 06/18/2017. - Constitutional Vitals: Temp Pulse Resp BP Pulse Ox 98.6 F 83 17 98/64 92 03/12/18 18:29 03/12/18 18:29 03/12/18 18:29 03/12/18 18:29 03/12/18 18:29 Exam: Gen.: She is a well-developed well-nourished female resting comfortably in bed who appears in no acute distress. She denies pain or dyspnea at present time HEENT: Head is atraumatic and normocephalic. Eyes: EOMI. There is no scleral icterus. Mouth: Mucosa is moist. Neck: Supple and nontender. There is no thyromegaly or adenopathy noted. Heart: Regular without murmurs gallops or ectopics Lungs: No wheezes or crackles are heard. Abdomen: Soft and nontender. No masses or guarding are noted. Extremities: There is no cyanosis edema or clubbing noted. Dorsalis pedis and posttibial pulses are trace palpable bilaterally. Neurologic: Mental status: She is talkative and a good historian. Cranial nerves: Smile is symmetric. Forehead wrinkles bilaterally. Tongue protrudes midline. EOMI. Motor: There is no pronator drift. Cerebellar: Finger to nose is intact bilaterally. Skin: Warm and dry Internal Med - H&P Results - Labs CBC & Chem 7: 03/12/18 13:10 03/12/18 13:10 Labs: Short CBC 03/12/18 Range/Units 13:10 WBC 16.7 H (4.3-11.1) K/mcL Hgb 12.3 (11.5-15.4) g/dL Hct 37.8 (35.3-44.9) % Plt Count 231 (140-400) K/mcL Neutrophils # 11.9 H (1.6-8.9) K/mcL BMP 03/12/18 13:10 Sodium 140 Potassium 3.7 Chloride 105 Carbon Dioxide 28 BUN 32 H Creatinine 1.64 H Glucose 114 H Calcium 8.6 Cardiac Enzymes 03/12/18 Range/Units 13:10 Troponin I < 0.03 (< 0.04) ng/mL Urine 03/12/18 Range/Units 13:36 Urine Color Yellow (Yellow) Urine Clarity Turbid A (Clear) Urine pH 5.5 (5.0-8.0) pH Units Ur Specific [place] >= 1.030 H (1.010-1.025) Urine Protein 100 H (Neg-Trace) mg/dL Urine Glucose (UA) Normal (Normal) mg/dL - Impressions ITS Impressions Chest X-Ray 03/12/18 12:55 IMPRESSION: No acute pulmonary process. D/ / 03/12/2018 13:47:06 Harry Jarquin MD / [facility] Interpreting Provider: Harry Jarquin MD
[2018-03-12] MEDS ORDERED: Melatonin 3 MG TABLET PO SCH (21:00)
[2018-03-12] MEDS ORDERED: Gabapentin 100 MG CAPSULE PO SCH (21:00)
[2018-03-12] MEDS ORDERED: Divalproex (24 HR) 500 MG TABLET PO SCH (21:00)
[2018-03-12] MEDS ORDERED: Metoprolol XL (24 HR) Succ 50 MG TAB.ER.24H PO SCH (21:00)
[2018-03-12] MEDS ORDERED: TRAVOPROST OP SCH (21:00)
[2018-03-12] MEDS ORDERED: Mirtazapine 15 MG TABLET PO SCH (21:00)
[2018-03-12] MEDS: 0.45 % Sodium Chloride w/KCl 20 MEQ/1,000 ML MLS IVC SCH (21:30)
[2018-03-12] MEDS: Dorzolamide/Timolol OPTH 10 ML BOTTLE BOTH EYES SCH (21:31)
[2018-03-13 05:34] LABS: Basophils # 0.1 K/mcL (0.0-0.2); Basophils % 0.7 %; Eosinophils # 0.2 K/mcL (0.0-0.6); Eosinophils % 1.2 %; Hematocrit 34.8 % (35.3-44.9); Hemoglobin 11.3 g/dL (11.5-15.4); Immature Granulocytes % 3.7 % (0-4); Lymphocytes # 2.8 K/mcL (0.6-4.6); Lymphocytes % 20.3 %; Mean Corpuscular HGB Conc 32.5 g/dL (31.6-35.5); Mean Corpuscular Hemoglobin 30.4 pg (28.0-33.3); Mean Corpuscular Volume 93.5 fL (83.0-100.0); Mean Platelet Volume 8.8 fL (9.4-12.4); Monocytes # 1.1 K/mcL (0.0-1.3); Monocytes % 8.3 %; Platelet Count 211 K/mcL (140-400); Red Blood Count 3.72 M/mcL (3.82-4.97); Red Cell Distribution Width 14.6 % (11.5-14.5); Segmented Neutrophils % 65.8 %
[2018-03-13] MEDS: 0.45 % Sodium Chloride w/KCl 20 MEQ/1,000 ML MLS IVC SCH (05:35)
[2018-03-13 05:59] LABS: Albumin 2.6 g/dL (3.5-5.7); Albumin/Globulin Ratio 0.8 (1.1-2.2); Bilirubin,Total 0.2 mg/dL (0.3-1.0); Globulin 3.4 g/dL (2.4-3.5); Potassium 3.6 mEq/L (3.5-5.1)
[2018-03-13] MEDS: Dorzolamide/Timolol OPTH 10 ML BOTTLE BOTH EYES SCH (08:31)
[2018-03-13 08:47] LABS: % Iron Saturation 8 % (15-50); Iron 14 mcg/dL (50-170); Transferrin 118 mg/dL (203-362)
[2018-03-13] MEDS ORDERED: NON-FORMULARY MEDICATION 1 EACH EACH (Loratadine [Claritin] 10 MG) PO SCH (09:00)
[2018-03-13] MEDS ORDERED: Divalproex (12 HR) 250 MG TABLET PO SCH (09:00)
[2018-03-13] MEDS ORDERED: Cholecalciferol (D-3) 1,000 UNIT TABLET PO SCH (09:00)
[2018-03-13] MEDS ORDERED: (Linagliptin [Tradjenta] 5 MG PO SCH (09:00)
[2018-03-13] MEDS ORDERED: Aspirin Enteric Coated 81 MG Tablet PO SCH (09:00)
[2018-03-13] MEDS ORDERED: OXYBUTYNIN CHLORIDE 20 MG PO SCH (09:00)
[2018-03-13] MEDS ORDERED: *HR* LORazepam 1 MG TABLET PO SCH (09:00)
[2018-03-13] MEDS ORDERED: BuPROPion XL (24 HR) 150 MG TABLET PO SCH (09:00)
[2018-03-13] MEDS ORDERED: NON-FORMULARY MEDICATION 1 EACH EACH (Pantoprazole Sodium [Pantoprazole Sodium] 40 MG) PO SCH (09:00)
[2018-03-13] MEDS ORDERED: (Mirabegron [Myrbetriq] 25 MG PO SCH (09:00)
[2018-03-13] MEDS ORDERED: *HR* Glimepiride 2 MG TABLET PO SCH (09:00)
[2018-03-13] MEDS ORDERED: cefTRIAXone 1,000 MG in Water for inj. (sterile) 20 ML 10 ML IVPB SCH (09:00)
[2018-03-13 09:03] LABS: Ferritin 244 ng/mL (10-120)
--- NOTE | 2018-03-13 11:06 | Discharge Summary ---
Orders not resulted at time of discharge: Pending orders 03/12/18 13:36 Culture,Urine [RM] Stat 03/13/18 10:53 B-Type Natriuretic Peptide Routine Date of Encounter: 03/13/18 Time of Encounter: 10:54 - Discharge Diagnosis (1) Urinary tract infection Priority: Primary Status: Acute Qualifiers: Urinary tract infection type: site unspecified Hematuria presence: with hematuria Qualified Code(s): N39.0 - Urinary tract infection, site not specified; R31.9 - Hematuria, unspecified (2) CKD (chronic kidney disease) stage 3, GFR 30-59 ml/min Priority: Secondary Status: Chronic (3) Diastolic heart failure Priority: Secondary Status: Chronic Qualifiers: Heart failure chronicity: chronic Qualified Code(s): I50.32 - Chronic diastolic (congestive) heart failure (4) Type 2 diabetes mellitus Priority: Secondary Status: Chronic Qualifiers: Diabetes mellitus chcf insulin use: without intermodal dispatcher use Diabetes mellitus complication status: with kidney complications Diabetes mellitus complication detail: with chronic kidney disease Chronic kidney disease stage: stage 3 (moderate) Qualified Code(s): E11.22 - Type 2 diabetes mellitus with diabetic chronic kidney disease; N18.3 - Chronic kidney disease, stage 3 (moderate) Hospital course: Ms. Crespo is a 82 year old female who came to emergency room stating she had pain in her neck for past few days. She attributed the pain to sleeping on a different pillow at the SNF where she [facility]. She was evaluated in emergency room and was found to have leukocytosis with probable UTI. She had acute on chronic renal insufficiency. She was admitted to [facility] floor for ongoing care needs. Initial orders were written by the emergency room physician. I saw her on March 12 and performed a history and physical. She was started empirically on Rocephin in emergency room for UTI. I added lactobacillus. WBC had decreased to 13.7 K with decrease in left shift by the following day. She remained afebrile. Urine culture report is pending at time of discharge. She will be prescribed Ceftin with lactobacillus for 5 additional days at discharge. Her PCP can follow up on urine culture report determine if Ceftin provides adequate coverage. IV fluids were ordered and lisinopril was held. Creatinine decreased to 1.48 by the day of discharge. Her blood pressure remained satisfactory. She will remain off lisinopril at discharge and her PCP can monitor blood pressure and renal indices. Anemia testing showed iron 14, transferrin saturation 8%, transferrin 118, and ferritin 244. She will continue ferrous sulfate. Ascorbic acid will be added to facilitate absorption of ferrous sulfate. There were no other new problems and on March 13 she was stable for discharge back to the SNF. She will follow with her PCP April Delgado CNP. - Time Spent with Patient Total time spent providing and/or coordinating discharge services: - Discharge Medications Prescriptions: Cefuroxime PO [Ceftin] 500 mg PO Q12HR 5 Days tablet Ascorbic Acid [C-500] 500 mg PO DAILY 365 Days tablet Ferrous Sulfate 325 mg PO DAILY 365 Days tablet Lactobacillus [Culturelle] 1 each PO BID 5 Days cap.sprink Home Medications: Aspirin [Lo-Dose Aspirin EC] 81 mg PO DAILY 09/27/16 [History] Atorvastatin [Lipitor] 20 mg PO HS 09/27/16 [History] BuPROPion [Wellbutrin] 150 mg PO DAILY 09/27/16 [History] Docusate [Colace] 100 mg PO DAILY 09/27/16 [History] Gabapentin [Neurontin] 100 mg PO HS 09/27/16 [History] Dicyclomine [Bentyl] 10 mg PO ACHS 04/10/17 [History] Divalproex Sodium [Depakote] 250 mg PO QAM 04/10/17 [History] Glimepiride [Amaryl] 1 mg PO DAILY 04/10/17 [History] Loratadine [Claritin] 10 mg PO QAM 04/10/17 [History] Melatonin 5 mg PO HS 04/10/17 [History] Metoprolol XL (24 HR) Succ [Toprol Xl] 50 mg PO HS 04/10/17 [History] Travoprost [Travatan Z] 51 drop BOTH EYES HS 04/10/17 [History] Allopurinol [Zyloprim 100 MG] 100 mg PO DAILY 11/04/17 [History] Benzonatate [Tessalon] 100 mg PO TID 11/05/17 [History] Cholecalciferol (D-3) [Vitamin D] 1,000 unit PO DAILY 11/05/17 [History] Cholestyramine 4 gm PO DAILY PRN 11/05/17 [History] Cranberry Fruit Extract [Cranberry] 250 mg PO BID 11/05/17 [History] Divalproex (24 HR) [Depakote ER (24 HR)] 500 mg PO HS 11/05/17 [History] Dorzolamide/Timolol [Cosopt] 1 drop BOTH EYES BID 11/05/17 [History] Ferrous Sulfate [Iron] 325 mg PO DAILY 11/05/17 [History] Guaifenesin [Mucinex] 600 mg PO BID PRN 11/05/17 [History] Ipratropium/Albuterol Neb [Duoneb] 3 ml IH Q4HR PRN 11/05/17 [History] Linagliptin [Tradjenta] 5 mg PO DAILY 11/05/17 [History] Loperamide HCl [Anti-Diarrheal] 2 mg PO QID PRN MDD 8 TAB PER DAY 11/05/17 [History] Mirabegron [Myrbetriq] 25 mg PO DAILY 11/05/17 [History] Mirtazapine [Remeron] 15 mg PO HS 11/05/17 [History] Ondansetron HCl [Zofran] 4 mg PO Q6H PRN 11/05/17 [History] Oxybutynin Chloride [Ditropan Xl] 20 mg PO DAILY 11/05/17 [History] Pantoprazole Sodium 40 mg PO DAILY 11/05/17 [History] Phenol/Glycerin [Chloraseptic [place]] 2 spr MM DAILY PRN 11/05/17 [History] HYDROcodone/Acet 5/325 mg [[place] 5-325 mg] 1 tab PO Q8H PRN 3 Days #9 tablet 11/12/17 [Rx] LORazepam [Lorazepam] 2 mg PO DAILY 3 Days #3 tablet 11/12/17 [Rx] Zolpidem [Ambien] 10 mg PO HS 3 Days #3 tablet 11/12/17 [Rx] Ascorbic Acid [C-500] 500 mg PO DAILY 365 Days tablet 03/13/18 [Rx] Cefuroxime PO [Ceftin] 500 mg PO Q12HR 5 Days tablet 03/13/18 [Rx] Ferrous Sulfate 325 mg PO DAILY 365 Days tablet 03/13/18 [Rx] Lactobacillus [Culturelle] 1 each PO BID 5 Days cap.sprink 03/13/18 [Rx] Allergies/Adverse Reactions: Allergy/AdvReac Type Severity Reaction Status Date / Time valdecoxib [From Bextra] Allergy Rash Verified 12/30/14 11:18 Date of admission: 03/12/18 14:22 Primary care physician: Buzz Dennis MD - Constitutional Vitals: Temp Pulse Resp BP Pulse Ox 98.3 F 80 19 127/60 93 03/13/18 07:28 03/13/18 07:28 03/13/18 07:28 03/13/18 07:28 03/13/18 07:28 - Patient Status Disposition: Transfer SNF Condition: Fair - Discharge Instructions Follow Up With: Buzz Dennis MD [Primary Care Provider] - 1 week - Diet and Activity Activity: resume usual activities as tolerated Diet: advance to your usual diet
--- NOTE | 2018-03-13 11:12 | Physician Discharge Referral ---
ExtendedCare Referral Info Transfer To: [facility] Provider in Charge: Quang Provider in Charge after Transfer: PCP (Buzz Dennis M.D.) - Diagnosis (1) Urinary tract infection Priority: Primary Status: Acute (2) CKD (chronic kidney disease) stage 3, GFR 30-59 ml/min Priority: Secondary Status: Chronic (3) Diastolic heart failure Priority: Secondary Status: Chronic (4) Type 2 diabetes mellitus Priority: Secondary Status: Chronic Prognosis: Fair Aware of Diagnosis: Patient Aware of Prognosis: Patient - Transfer Medications Prescriptions: Cefuroxime PO [Ceftin] 500 mg PO Q12HR 5 Days tablet Ascorbic Acid [C-500] 500 mg PO DAILY 365 Days tablet Ferrous Sulfate 325 mg PO DAILY 365 Days tablet Lactobacillus [Culturelle] 1 each PO BID 5 Days cap.sprink Home Medications: Aspirin [Lo-Dose Aspirin EC] 81 mg PO DAILY 09/27/16 [History] Atorvastatin [Lipitor] 20 mg PO HS 09/27/16 [History] BuPROPion [Wellbutrin] 150 mg PO DAILY 09/27/16 [History] Docusate [Colace] 100 mg PO DAILY 09/27/16 [History] Gabapentin [Neurontin] 100 mg PO HS 09/27/16 [History] Dicyclomine [Bentyl] 10 mg PO ACHS 04/10/17 [History] Divalproex Sodium [Depakote] 250 mg PO QAM 04/10/17 [History] Glimepiride [Amaryl] 1 mg PO DAILY 04/10/17 [History] Loratadine [Claritin] 10 mg PO QAM 04/10/17 [History] Melatonin 5 mg PO HS 04/10/17 [History] Metoprolol XL (24 HR) Succ [Toprol Xl] 50 mg PO HS 04/10/17 [History] Travoprost [Travatan Z] 51 drop BOTH EYES HS 04/10/17 [History] Allopurinol [Zyloprim 100 MG] 100 mg PO DAILY 11/04/17 [History] Benzonatate [Tessalon] 100 mg PO TID 11/05/17 [History] Cholecalciferol (D-3) [Vitamin D] 1,000 unit PO DAILY 11/05/17 [History] Cholestyramine 4 gm PO DAILY PRN 11/05/17 [History] Cranberry Fruit Extract [Cranberry] 250 mg PO BID 11/05/17 [History] Divalproex (24 HR) [Depakote ER (24 HR)] 500 mg PO HS 11/05/17 [History] Dorzolamide/Timolol [Cosopt] 1 drop BOTH EYES BID 11/05/17 [History] Ferrous Sulfate [Iron] 325 mg PO DAILY 11/05/17 [History] Guaifenesin [Mucinex] 600 mg PO BID PRN 11/05/17 [History] Ipratropium/Albuterol Neb [Duoneb] 3 ml IH Q4HR PRN 11/05/17 [History] Linagliptin [Tradjenta] 5 mg PO DAILY 11/05/17 [History] Loperamide HCl [Anti-Diarrheal] 2 mg PO QID PRN MDD 8 TAB PER DAY 11/05/17 [History] Mirabegron [Myrbetriq] 25 mg PO DAILY 11/05/17 [History] Mirtazapine [Remeron] 15 mg PO HS 11/05/17 [History] Ondansetron HCl [Zofran] 4 mg PO Q6H PRN 11/05/17 [History] Oxybutynin Chloride [Ditropan Xl] 20 mg PO DAILY 11/05/17 [History] Pantoprazole Sodium 40 mg PO DAILY 11/05/17 [History] Phenol/Glycerin [Chloraseptic Max [place]] 2 spr MM DAILY PRN 11/05/17 [History] HYDROcodone/Acet 5/325 mg [[place] 5-325 mg] 1 tab PO Q8H PRN 3 Days #9 tablet 11/12/17 [Rx] LORazepam [Lorazepam] 2 mg PO DAILY 3 Days #3 tablet 11/12/17 [Rx] Zolpidem [Ambien] 10 mg PO HS 3 Days #3 tablet 11/12/17 [Rx] Ascorbic Acid [C-500] 500 mg PO DAILY 365 Days tablet 03/13/18 [Rx] Cefuroxime PO [Ceftin] 500 mg PO Q12HR 5 Days tablet 03/13/18 [Rx] Ferrous Sulfate 325 mg PO DAILY 365 Days tablet 03/13/18 [Rx] Lactobacillus [Culturelle] 1 each PO BID 5 Days cap.sprink 03/13/18 [Rx] Allergies/Adverse Reactions: Allergy/AdvReac Type Severity Reaction Status Date / Time valdecoxib [From Bextra] Allergy Rash Verified 12/30/14 11:18 - Respiratory Orders Smoking Cessation: Smoking cessation has been advised. For more information, call the [place] Tobacco Quit Line at 8-957-ZEUX-NOW. - Rehabiliation Orders Rehab Potential: Fair - Diet Orders No Concentrated Sweets CERTIFICATION: I certify that the transfer of the above named patient to an Extended Care Facility is necessary for the continuing treatment of the diagnosis listed. The above information is true and accurate reflection of patient's current condition. Confidential - Redisclosure prohibited without a patient's written consent.
[2018-03-13 11:36] VITALS: BP 117/56
== END 2018-03-13 12:20 ==
LOC: INPPIK 12:09 → EMEROOPIK 12:09 → INPPIK 16:19
PROVIDERS: ADMIT Internal Medicine; ATTEND Internal Medicine